=== PATIENT | male | born 1960 | race Caucasian/White ===

== ENCOUNTER → 2016-06-02 | Outpatient (CLI) | payer MEDICARE ==
--- NOTE | 2016-06-03 15:02 | RAD ---
EXAM DESCRIPTION: XR KNEE 1-2 VIEWS CLINICAL HISTORY: LEFT KNEE PAIN COMPARISON: None available FINDINGS: Three views of the left knee show no acute fracture or malalignment period there is a moderate size left knee joint effusion period mild degenerative calcifications are noted in the lateral and patellofemoral compartments. IMPRESSION: Mild degenerative changes and a moderate sized left knee joint effusion. Electronically signed by: Jose Manuel Doll DO 06/03/2016 15:00
== END ==
LOC: RAD 16:33
PROVIDERS: ATTEND Family Medicine
DX: M06.9 Rheumatoid arthritis, unspecified (principal); M25.562 Pain in left knee

== ENCOUNTER 2017-06-04 00:47 | Emergency (ER) | payer MEDICARE ==
--- NOTE | 2017-06-04 01:13 | ED.PDOC ---
History of Present Illness - General Chief Complaint: General Stated Complaint: Flu like sx's fever Time Seen by Provider: 06/04/17 01:10 Source: patient Exam Limitations: no limitations - History of Present Illness Initial Comments: Thor Jackson 57 y/o male state that he had been having flu like symptoms - fever /productive cough for the last one week and feels its getting worse with pain on coughing and feels sob.No nausea/vomiting ,chills.Has flu and PNA immunizations. Timing/Duration: 1 week, getting worse, changing over time Severity: moderate Improving Factors: nothing Worsening Factors: nothing Associated Symptoms: other - see hpi Allergies/Adverse Reactions: Allergies Iodine Allergy (Verified 06/04/17 01:02) Methotrexate Allergy (Verified 06/04/17 01:02) Penicillins Allergy (Verified 06/04/17 01:02) Home Medications: Ambulatory Orders Azithromycin [Zithromax Z-Viktor] 1 ea PO DAILY #1 pack 09/26/14 Methylprednisolone [Medrol Dose Viktor] 4 mg PO DAILY #1 pack 09/26/14 Albuterol Inhaler [Ventolin Hfa Inhaler] 1 puff INH Q6H #1 inh 06/09/15 Azithromycin [Zithromax Z-Viktor] 1 ea PO DAILY #1 pack 06/09/15 Benzonatate Perles [Tessalon Perles] 100 mg PO Q6H #30 cap 06/09/15 BuPROPion XL [Wellbutrin XL] 150 mg PO BID 06/09/15 Budesonide Inhaler [Pulmicort Flexhaler] 180 mcg IN BID #1 inh 06/09/15 Cholecalciferol [Vitamin D3] 10,000 unit PO DAILY 06/09/15 Cyclobenzaprine HCl [Flexeril] 10 mg PO TID #30 tab 06/09/15 Ferrous Sulfate [Iron] 65 mg PO DAILY 06/09/15 HYDROcodone 10MG/APAP 325MG [[place] 10/325] 1 ea PO Q6H 06/09/15 Levofloxacin [Levaquin] 750 mg PO QAM #7 tab 06/09/15 Lisinopril 40 mg PO DAILY 06/09/15 Loratadine 10Mg/Pseudoep 240Mg [Claritin-D 24 Hour] 1 tab PO DAILY 06/09/15 Loratadine [Claritin] 10 mg PO QAM #15 tab 06/09/15 Metformin HCl 500 mg PO BID 06/09/15 Methadone HCl [Methadone] 10 mg PO Q4H 06/09/15 Metoprolol Succinate [Toprol XL] 25 mg PO DAILY 06/09/15 Naproxen [Naprosyn] 500 mg PO BID #30 tab 06/09/15 Olopatadine HCl (Nasal) [Patanase] 2 inh NA DAILY 06/09/15 Omeprazole [Prilosec] 40 mg PO DAILY 06/09/15 Potassium Gluconate 595 mg PO DAILY 06/09/15 Pravastatin Sodium 40 mg PO DAILY 06/09/15 Prednisone [Deltasone] 20 mg PO BID PRN 06/09/15 Testosterone 200 mg [place] .[id number] 06/09/15 Tizanidine HCl [Zanaflex] 4 mg PO Q4H 06/09/15 Tramadol HCl [Ultram] 50 mg PO Q6H #30 tab 06/09/15 Triamcinolone Acetonide (Nasal [Nasacort Allergy 24Hr] 2 inh NA DAILY 06/09/15 guaiFENesin/DEXTROMETH SYRUP [Robitussin Dm] 10 ml PO Q6H #240 ud 06/09/15 predniSONE [Prednisone] 20 mg PO QAM #5 tab 06/09/15 Oseltamivir Capsule [Tamiflu] 75 mg PO BID 5 Days #10 capsule 06/04/17 levoFLOXacin [Levaquin] 500 mg PO DAILY #10 tab 06/04/17 Review of Systems - Review of Systems Constitutional: States: fever EENTM: States: nose congestion Respiratory: States: see HPI Cardiology: States: no symptoms reported Gastrointestinal/Abdominal: States: no symptoms reported Genitourinary: States: no symptoms reported Musculoskeletal: States: back pain - chronic upper back Skin: States: no symptoms reported Neurological: States: no symptoms reported Past Medical History (General) - Patient Medical History Hx Seizures: Yes Hx Stroke: No Hx Dementia: No Hx Asthma: No Hx of COPD: Yes Hx Cardiac Disorders: No Hx Congestive Heart Failure: No Hx Pacemaker: No Hx Hypertension: No Hx Thyroid Disease: Yes Hx Diabetes: Yes Hx Gastroesophageal Reflux: Yes - Johnston's Esophagus Hx Renal Disease: No Hx Cancer: No Hx of HIV: No Hx Hepatitis C: No Hx MRSA: No Hx Other PMH: Yes - chronic upper back pain Surgical History: other - Vaccination History Hx Tetanus, Diphtheria Vaccination: No Hx Influenza Vaccination: No Hx Pneumococcal Vaccination: No - Social History Hx Tobacco Use: No Hx Alcohol Use: No Hx Substance Use: No Hx Substance Use Treatment: No Hx Depression: No Hx Physical Abuse: No Hx Emotional Abuse: No Hx Suspected Abuse: No Family Medical History - Family History Mother Family History: Unknown Living Status: Still Living Hx Family Hypertension: Yes Hx Cardiac Disease: Yes Physical Exam - Physical Exam General Appearance: Alert, Comfortable, No apparent distress Eye Exam: bilateral normal Ears, Nose, Throat: hearing grossly normal, normal ENT inspection, normal pharynx Neck: full range of motion, supple, normal inspection Respiratory: chest non-tender, no respiratory distress, other - coarse breath sounds;speaks in full sentences Cardiovascular/Chest: no murmur Peripheral Pulses: radial,right: 2+, radial,left: 2+ Gastrointestinal/Abdominal: non tender, soft, no organomegaly Back Exam: normal inspection, no CVA tenderness, no vertebral tenderness Extremity: non-tender, no pedal edema, no calf tenderness Neurologic: alert, oriented x 3 Skin Exam: normal color, warm/dry Progress - Progress Progress: 06/04/17 01:16 Last Vital Signs Temp 101.0 F H 06/04/17 01:02 Pulse 108 H 06/04/17 01:02 Resp 20 06/04/17 01:02 BP 180/95 06/04/17 01:02 Pulse Ox 93 L 06/04/17 01:02 - EKG/XRAY/CT XRAY: chest - right basilar infiltrate suspicious for pneumonia Departure - Departure Clinical Impression: Pneumonia Qualifiers: Pneumonia type: due to unspecified organism Laterality: right Lung location: lower lobe of lung Qualified Code(s): J18.1 - Lobar pneumonia, unspecified organism Time of Disposition: 03:11 Disposition: Discharge to Home or Self Care Condition: Good Departure Forms: ED Discharge - Pt. Copy, Patient Portal Self Enrollment Prescriptions: levoFLOXacin [Levaquin] 500 mg PO DAILY #10 tab Oseltamivir Capsule [Tamiflu] 75 mg PO BID 5 Days #10 capsule Home Medications: Ambulatory Orders Azithromycin [Zithromax Z-Viktor] 1 ea PO DAILY #1 pack 09/26/14 Methylprednisolone [Medrol Dose Viktor] 4 mg PO DAILY #1 pack 09/26/14 Albuterol Inhaler [Ventolin Hfa Inhaler] 1 puff INH Q6H #1 inh 06/09/15 Azithromycin [Zithromax Z-Viktor] 1 ea PO DAILY #1 pack 06/09/15 Benzonatate Perles [Tessalon Perles] 100 mg PO Q6H #30 cap 06/09/15 BuPROPion XL [Wellbutrin XL] 150 mg PO BID 06/09/15 Budesonide Inhaler [Pulmicort Flexhaler] 180 mcg IN BID #1 inh 06/09/15 Cholecalciferol [Vitamin D3] 10,000 unit PO DAILY 06/09/15 Cyclobenzaprine HCl [Flexeril] 10 mg PO TID #30 tab 06/09/15 Ferrous Sulfate [Iron] 65 mg PO DAILY 06/09/15 HYDROcodone 10MG/APAP 325MG [[place] 10/325] 1 ea PO Q6H 06/09/15 Levofloxacin [Levaquin] 750 mg PO QAM #7 tab 06/09/15 Lisinopril 40 mg PO DAILY 06/09/15 Loratadine 10Mg/Pseudoep 240Mg [Claritin-D 24 Hour] 1 tab PO DAILY 06/09/15 Loratadine [Claritin] 10 mg PO QAM #15 tab 06/09/15 Metformin HCl 500 mg PO BID 06/09/15 Methadone HCl [Methadone] 10 mg PO Q4H 06/09/15 Metoprolol Succinate [Toprol XL] 25 mg PO DAILY 06/09/15 Naproxen [Naprosyn] 500 mg PO BID #30 tab 06/09/15 Olopatadine HCl (Nasal) [Patanase] 2 inh NA DAILY 06/09/15 Omeprazole [Prilosec] 40 mg PO DAILY 06/09/15 Potassium Gluconate 595 mg PO DAILY 06/09/15 Pravastatin Sodium 40 mg PO DAILY 06/09/15 Prednisone [Deltasone] 20 mg PO BID PRN 06/09/15 Testosterone 200 mg [place] .[id number] 06/09/15 Tizanidine HCl [Zanaflex] 4 mg PO Q4H 06/09/15 Tramadol HCl [Ultram] 50 mg PO Q6H #30 tab 06/09/15 Triamcinolone Acetonide (Nasal [Nasacort Allergy 24Hr] 2 inh NA DAILY 06/09/15 guaiFENesin/DEXTROMETH SYRUP [Robitussin Dm] 10 ml PO Q6H #240 ud 06/09/15 predniSONE [Prednisone] 20 mg PO QAM #5 tab 06/09/15 Oseltamivir Capsule [Tamiflu] 75 mg PO BID 5 Days #10 capsule 06/04/17 levoFLOXacin [Levaquin] 500 mg PO DAILY #10 tab 06/04/17 Additional Instructions: FOLLOW UP WITH PRIMARY MD IN AM 06/04/2017 ;Continue with all home medications
--- NOTE | 2017-06-04 03:01 | RAD ---
Procedure: XR CHEST 2 VIEWS Exam Date: 06/04/2017 Ordering Provider: Ector Pal Clinical Indication: cough Comparison: 04/20/2016 Findings: Cardiomediastinal silhouette: There is volume loss in the right hemithorax with mediastinal shift to the right. This is similar to prior. Focal lung consolidation: Right perihilar and basilar opacities suspicious for pneumonia. Elevation of the right hemidiaphragm. Left lung is hyperexpanded and clear. Pleural effusion: None Pneumothorax: None Bones and soft tissues: Nonacute Impression: 1. Right perihilar and basilar opacities suspicious for pneumonia. Electronically signed by: Gerardo Simons MD 06/04/2017 3:[address] [facility]
[2017-06-04] MEDS ORDERED: levoFLOXacin 500MG IV 500 MG in PREMIX BAG 1 BAG IVPB ONE (03:07)
[2017-06-04] MEDS ORDERED: OSELTAMIVIR 75 MG CAP PO ONE (03:09)
[2017-06-04] MEDS ORDERED: levoFLOXacin 500MG IV 100 ML IVPB ONE (03:17)
[2017-06-04 04:51] VITALS: BP 120/83; TEMP 99.5; O2SAT 95
== END 2017-06-04 04:51 | disposition home or self-care (01) ==
LOC: ER 00:47
DX: J18.1 Lobar pneumonia, unspecified organism (principal); J44.9 Chronic obstructive pulmonary disease, unspecified; E07.9 Disorder of thyroid, unspecified; E11.9 Type 2 diabetes mellitus without complications; K22.70 Barrett's esophagus without dysplasia; Z79.899 Other long term (current) drug therapy
CPT/HCPCS: 36415; 71046; 80053; 81001; 83605; 85025; 87804; J1956